=== PATIENT | male | born 1950 | race African-American/Black ===

== ENCOUNTER 2024-02-05 07:25 | Outpatient (CLI) | payer MEDICARE | END 2024-02-05 07:26 | disposition home or self-care (01) | LOC: CSHCT 07:25 | PROVIDERS: ATTEND Internal Medicine | DX: K63.5 Polyp of colon (principal); K57.30 Diverticulosis of large intestine without perforation or abscess without bleeding; N40.0 Benign prostatic hyperplasia without lower urinary tract symptoms | CPT/HCPCS: 36415; 74177; 82565 ==

== ENCOUNTER 2024-02-13 10:15 | Outpatient (CLI) | payer MEDICARE ==
[2024-02-13 12:02] LABS: #Basophils 0.05 10x3/uL (0.0-0.2); #Eosinophils 0.06 10x3/uL (0.0-0.5); #Monocytes 0.54 10x3/uL (0.0-1.1); %Basophils 0.9 % (0.0-2.0); %Eosinophils 1.1 % (0.0-6.0); %Lymphocytes 52.3 % (18.0-47.0); %Monocytes 10.1 % (0.0-10.0); %Neutrophils 35.4 % (40.0-75.0); Mean Corpuscular HGB CONC 31.8 g/dL (32.0-36.0); Mean Corpuscular Hemoglobin 29.5 pg (27.0-33.0); Mean Corpuscular Volume 92.8 fL (81.2-95.1); Mean Platelet Volume 10.2 fL (7.4-10.4); Platelet Count 249 10x3/uL (150-450); RBC Distribution Width 11.6 % (11.5-14.5); Red Blood Cell (RBC) Count 4.74 10x6/uL (4.32-5.72); White Blood Cell (WBC) Count 5.4 10x3/uL (3.5-10.5)
[2024-02-13 12:41] LABS: ALT (SGPT) 29 U/L (8-55); AST (SGOT) 26 U/L (5-34); Albumin 4.1 g/dL (3.4-4.8); Alkaline Phosphatase 65 U/L (40-110); Anion Gap 12 mmol/L (10-20); BUN (Urea Nitrogen) 14 mg/dL (8.4-25.7); Bilirubin, Direct 0.3 mg/dL (0.1-0.3); Bilirubin, Total 0.8 mg/dL (0.2-1.2); Calc. Creatinine Clearance 0 mL/min (70-130); Calcium 9.7 mg/dL (7.8-10.44); Carbon Dioxide 29 mmol/L (23-31); Chloride 103 mmol/L (98-107); Estimated GFR 71; Glucose 96 mg/dL (83-110); Potassium 4.6 mmol/L (3.5-5.1); Protein, Total 7.3 g/dL (5.8-8.1); Sodium 139 mmol/L (136-145)
== END 2024-02-13 10:16 | disposition home or self-care (01) ==
LOC: CSHLAB 10:15
PROVIDERS: ATTEND Surgery
DX: Z01.818 Encounter for other preprocedural examination (principal); K63.89 Other specified diseases of intestine
CPT/HCPCS: 80048; 80076; 83036; 85025; 93005; 93010

== ENCOUNTER 2024-02-13 10:30 | Inpatient (IN) | payer MEDICARE ==
[2024-02-13 10:51] VITALS: BMI 25.8
[2024-02-19] MEDS ORDERED: Lidocaine 1% PF 5 ML VIAL ONE (09:20)
[2024-02-19] MEDS ORDERED: fentaNYL 50 mcg/mL 1 mL Vial ONE ×6 (09:20→13:49)
[2024-02-19] MEDS ORDERED: PROPOFOL 20 ML ONE (09:20)
[2024-02-19] MEDS ORDERED: Rocuronium Bromide 10 MG/ML (10ML VIAL) ONE (09:20)
[2024-02-19] MEDS ORDERED: Bupivacaine/Epinephrine 0.25% 30 ML VIAL ONE (09:40)
[2024-02-19] MEDS ORDERED: ceFOXitin 1 GM VIAL ONE (10:20)
[2024-02-19] MEDS ORDERED: Glycopyrrolate 0.2 MG/ML 5 ML SYRINGE ONE (12:22)
[2024-02-19] MEDS ORDERED: Ondansetron PF 4 MG/2 ML Vial ONE (12:22)
[2024-02-19] MEDS ORDERED: Neostigmine 1 MG/ML in 5 ML SYRINGE ONE (12:22)
[2024-02-19] MEDS ORDERED: Ondansetron PF 4 MG/2 ML Vial IVP PRN (13:07)
[2024-02-19] MEDS ORDERED: Naloxone HCl 0.4 mg/ml Vial IVP PRN (13:07)
[2024-02-19] MEDS ORDERED: Promethazine HCl 25 MG/ML VIAL IM PRN (13:07)
[2024-02-19] MEDS ORDERED: Ipratropium/Albuterol 3 ML NEB NEB PRN (13:07)
[2024-02-19] MEDS ORDERED: traMADol HCl 50 MG TAB PO PRN (13:07)
[2024-02-19] MEDS: Acetaminophen 500 MG TAB PO SCH (15:18)
[2024-02-19] MEDS: D5 1/2 NS w/20 mEq KCL 1,000 ML IV SCH (15:19)
[2024-02-19] MEDS: oxyCODONE 5 MG TAB PO PRN (15:20)
[2024-02-19] MEDS: hydrALAZINE 20 MG/ML VIAL SLOW IVP PRN (15:21)
[2024-02-19] MEDS: FLU (Fluad Triv) TS24-25 (65UP)/MF59C/PF 45 MCG/0.5 ML Syringe IM ONE (17:13)
[2024-02-19] MEDS: cefOXitin 2 GM in Sodium Chloride 0.9% 100 ML IVPB SCH (17:17)
[2024-02-19] MEDS: fentaNYL 50 mcg/mL 1 mL Vial SLOW IVP PRN (18:25)
[2024-02-19] MEDS: Famotidine/PF 20 mg/2ml Vial SLOW IVP SCH (21:00)
[2024-02-19] MEDS: Famotidine 20 MG TAB PO SCH (21:08)
[2024-02-20 04:09] LABS: #Basophils 0.02 10x3/uL (0.0-0.2); #Monocytes 0.81 10x3/uL (0.0-1.1); #Neutrophils 6.12 10x3/uL (1.5-8.4); %Basophils 0.2 % (0.0-2.0); %Lymphocytes 23.7 % (18.0-47.0); %Monocytes 8.9 % (0.0-10.0); Hematocrit 39.1 % (38.8-50.0); Hemoglobin 12.6 g/dL (13.5-17.5); Mean Corpuscular HGB CONC 32.2 g/dL (32.0-36.0); Mean Corpuscular Hemoglobin 29.6 pg (27.0-33.0); Mean Platelet Volume 9.9 fL (7.4-10.4); Platelet Count 219 10x3/uL (150-450); RBC Distribution Width 11.9 % (11.5-14.5); Red Blood Cell (RBC) Count 4.25 10x6/uL (4.32-5.72); White Blood Cell (WBC) Count 9.1 10x3/uL (3.5-10.5)
[2024-02-20 04:46] LABS: Anion Gap 14 mmol/L (10-20); BUN (Urea Nitrogen) 8 mg/dL (8.4-25.7); Calc. Creatinine Clearance 55 mL/min (70-130); Calcium 8.3 mg/dL (7.8-10.44); Carbon Dioxide 21 mmol/L (23-31); Chloride 106 mmol/L (98-107); Estimated GFR 53; Glucose 101 mg/dL (83-110); Potassium 3.6 mmol/L (3.5-5.1); Sodium 137 mmol/L (136-145)
[2024-02-20] MEDS: Lisinopril 20 MG TAB PO SCH (09:18)
[2024-02-20] MEDS: Enoxaparin 40 MG (0.4 mL) SYRINGE SC SCH (09:18)
[2024-02-20] MEDS: Amlodipine 10 MG TAB PO SCH (09:18)
[2024-02-21 10:21] VITALS: BP 109/64; TEMP 98.5
== END 2024-02-21 10:57 | disposition home or self-care (01) | DRG 331 ==
LOC: CSHTELE 02-19 08:31 → EDSTATUS 02-19 10:30 → CSHTELE 02-19 14:36
PROVIDERS: ADMIT Surgery; ATTEND Surgery
PROC: 0DBL4ZZ Excision of Transverse Colon, Percutaneous Endoscopic Approach (ICD-10-PCS; principal; 2024-02-19)
PROC: 8E0W4CZ Robotic Assisted Procedure of Trunk Region, Percutaneous Endoscopic Approach (ICD-10-PCS; 2024-02-19)
DX: K63.9 Disease of intestine, unspecified (principal); K21.9 Gastro-esophageal reflux disease without esophagitis; E78.5 Hyperlipidemia, unspecified; I10 Essential (primary) hypertension; M19.90 Unspecified osteoarthritis, unspecified site; N40.0 Benign prostatic hyperplasia without lower urinary tract symptoms
CPT/HCPCS: 36416; 80048; 85025; 88309; J0360; J0694; J1650; J2405; J2704; J3010; J3480; J3490; S2900

== ENCOUNTER 2024-12-14 13:56 | Emergency (ER) | payer OTHER ==
[2024-12-14] MEDS ORDERED: Acetaminophen 500 MG TAB ONE (15:08)
[2024-12-14] MEDS ORDERED: Gabapentin 100 MG CAP PO SCH (15:15)
== END 2024-12-14 16:05 | disposition home or self-care (01) ==
LOC: CSHERS 13:56
DX: G57.10 Meralgia paresthetica, unspecified lower limb (principal); I10 Essential (primary) hypertension
CPT/HCPCS: 99283